=== PATIENT | female | born 1935 | race Caucasian/White ===

== ENCOUNTER → 2016-12-16 | Outpatient (CLI) | payer MEDICARE ==
[~2016-12-16] MED LIST: ESOM20CA PO; LEVO150T PO; LIOT5TAB6 PO; MELO-190 PO; MONT10TA9 PO; MULT1TAB11 PO; RECLAST; TELM40TA PO; TIMO1DRO2 EACHEYE
== END | disposition home or self-care (01) ==
LOC: CFH 12:47
PROVIDERS: ATTEND Internal Medicine Cardiovascular Disease
DX: I08.3 Combined rheumatic disorders of mitral, aortic and tricuspid valves (principal); Z87.891 Personal history of nicotine dependence
CPT/HCPCS: 93306

== ENCOUNTER 2017-05-15 08:49 | Day surgery (SDC) | payer MEDICARE ==
[~2017-05-15] VITALS: Ht 156.2 cm; Wt 74.0 kg
[~2017-05-15 08:49] MED LIST changes: +BUDE10.22 INH; +BUPIVACAINE/PF 0.25% ONE; +DEXL30CA2 PO; +EPINEPHRINE 1 MG/ML, 1ML ONE; +LIDOCAINE GEL 2%, 5ML ONE; +LIOT5TAB10 PO; -LIOT5TAB6 PO; +MACI10TA PO; -MELO-190 PO; +MELO7.5T31 PO; +SILVER NITRATE STICK TP ONE; +TADA20TA33 PO; +TREP1.743 INH
[2017-05-15 09:22] VITALS: BP 91/57
[2017-05-15] MEDS ORDERED: SILVER SULF. CRM 1% , 25GM ONE (09:28)
[2017-05-15] MEDS ORDERED: LACTATED RINGERS 1,000 ML IV SCH (09:36)
[2017-05-15] MEDS ORDERED: MIDAZOLAM 1 MG/ML, 2ML ONE ×2 (10:35→12:09)
[2017-05-15] MEDS ORDERED: FENTANYL PF 100 MCG/2ML ONE ×3 (10:35→13:00)
[2017-05-15] MEDS ORDERED: PROPOFOL 10 MG/ML, 20ML ONE ×2 (10:36→12:09)
[2017-05-15] MEDS ORDERED: CEFAZOLIN 1,000 MG ONE ×3 (10:38→12:09)
[2017-05-15] MEDS ORDERED: SODIUM CHLORIDE 0.9% PF 10ML ONE (10:38)
[2017-05-15] MEDS ORDERED: HYDROmorphone 1 MG/ML, 1ML ONE (10:57)
[2017-05-15] MEDS ORDERED: ONDANSETRON 2MG/ML, 2ML ONE ×2 (12:09→12:32)
[2017-05-15] MEDS ORDERED: DEXAMETHASONE 4 MG/ML, 1ML ONE ×3 (12:09→12:18)
[2017-05-15] MEDS ORDERED: BUPIVACAINE/PF-EPI 0.25% 1:200K INFIL ONE (12:24)
[2017-05-15] MEDS ORDERED: FENTANYL PF 100 MCG/2ML IV PRN (12:30)
[2017-05-15] MEDS ORDERED: LABETALOL 5MG/ML, 20ML IV PRN (12:30)
[2017-05-15] MEDS ORDERED: PROMETHAZINE 25 MG/ML, 1ML IV PRN (12:30)
[2017-05-15] MEDS ORDERED: HYDROmorphone 1 MG/ML, 1ML IV PRN (12:30)
[2017-05-15] MEDS ORDERED: ONDANSETRON 2MG/ML, 2ML IVPush PRN (12:30)
[2017-05-15] MEDS ORDERED: OXYcodone 5 MG/5 ML ORAL.SOL UDC PO PRN (12:30)
[2017-05-15] MEDS ORDERED: hydrALAzine 20 MG/ML, 1ML IV PRN (12:30)
[2017-05-15] MEDS ORDERED: ACETAMINOPHEN 325 MG TABLET PO PRN (12:30)
[2017-05-15] MEDS ORDERED: MEPERIDINE/PF 25MG/0.5ML IVPush PRN (13:00)
[2017-05-15] MEDS ORDERED: ACETAMINOPHEN 325 MG TABLET ONE (13:00)
== END 2017-05-15 15:00 | disposition home or self-care (01) ==
LOC: OUT 08:49
PROVIDERS: ATTEND Specialist
DX: N76.5 Ulceration of vagina (principal); N95.2 Postmenopausal atrophic vaginitis; Z88.6 Allergy status to analgesic agent; Z79.899 Other long term (current) drug therapy; I10 Essential (primary) hypertension; K21.9 Gastro-esophageal reflux disease without esophagitis; E03.9 Hypothyroidism, unspecified; Z87.440 Personal history of urinary (tract) infections; Z90.49 Acquired absence of other specified parts of digestive tract; Z87.891 Personal history of nicotine dependence
CPT/HCPCS: 57105; 88305; 88342; J0690; J1100; J2250; J2405; J2704; J3010; J7120; J0171; J1170; J3490; G0461

== ENCOUNTER → 2018-08-30 | Outpatient (CLI) | payer MEDICARE ==
[~2018-08-30] MED LIST changes: -BUPIVACAINE/PF 0.25% ONE; -EPINEPHRINE 1 MG/ML, 1ML ONE; -LIDOCAINE GEL 2%, 5ML ONE; -SILVER NITRATE STICK TP ONE
== END | disposition home or self-care (01) ==
LOC: CFH 13:19
PROVIDERS: ATTEND Internal Medicine Cardiovascular Disease
DX: I08.3 Combined rheumatic disorders of mitral, aortic and tricuspid valves (principal); Z87.891 Personal history of nicotine dependence; Z88.5 Allergy status to narcotic agent; Z88.8 Allergy status to other drugs, medicaments and biological substances
CPT/HCPCS: 93306

== ENCOUNTER → 2019-05-14 | Outpatient (CLI) | payer MEDICARE | END | disposition home or self-care (01) | LOC: EDSTATUS 04-24 13:00 → CARD 14:08 | PROVIDERS: ATTEND Internal Medicine | DX: R91.8 Other nonspecific abnormal finding of lung field (principal); K21.9 Gastro-esophageal reflux disease without esophagitis; I10 Essential (primary) hypertension; E03.9 Hypothyroidism, unspecified; I27.20 Pulmonary hypertension, unspecified; Z90.49 Acquired absence of other specified parts of digestive tract; Z79.51 Long term (current) use of inhaled steroids; Z90.710 Acquired absence of both cervix and uterus; Z90.89 Acquired absence of other organs; Z79.899 Other long term (current) drug therapy | CPT/HCPCS: 94060; 94726; 94729 ==

== ENCOUNTER → 2020-05-07 | Outpatient (CLI) | payer MEDICARE ==
[~2020-05-07] MED LIST changes: +MONT10TA11 PO; -MONT10TA9 PO
== END | disposition home or self-care (01) ==
LOC: CFH 14:29
PROVIDERS: ATTEND Internal Medicine Cardiovascular Disease
DX: I08.8 Other rheumatic multiple valve diseases (principal); I27.0 Primary pulmonary hypertension; R06.02 Shortness of breath
CPT/HCPCS: 93306